=== PATIENT | female | born 1975 | race Caucasian/White ===

== ENCOUNTER 2017-06-03 10:59 | Emergency (ER) | payer BC ==
[2017-06-03 11:18] VITALS: BP 120/55; PULSE 62; RESP 20; TEMP 97.9; O2SAT 100
[2017-06-03] MEDS ORDERED: TETR250C PO (11:23)
--- NOTE | 2017-06-03 11:38 | PD ---
HPI Chief Complaint: Cardiac Complaint Time Seen by Provider: 11:12 Travel History International Travel<30 days: No Contact w/Intl Traveler<30days: No Traveled to known affect area: No History of Present Illness HPI Patient's a 42-year-old female presents the emergency department for evaluation of epigastric middle of the chest spasms. Patient states that it's coming and going quite frequently. States his been going on for the past few days. She went to an urgent care facility today and was referred here to "rule out ulcer. " Patient does run 3 miles a day at least 3 times a week but states that she's not been able to do this recently secondary to pain. When she has run in the past that is not increased her pain. She is nonsmoker no high blood pressure high cholesterol and a family history of early heart disease. Symptoms are moderate, spasmodic and waxing and waning, not exacerbated by exercise, not associated with any shortness of breath vomiting diarrhea constipation. PFSH Past Medical History ?: Not Past Surgical History Other Surgery: Yes (ROSACEA) Social History Alcohol Use: No Tobacco Use: No Substance Use: No Allergies-Medications (Allergen,Severity, Reaction): Coded Allergies: No Known Allergies (Verified Allergy, Unknown, 06/03/17) Reported Meds & Prescriptions Reported Meds & Active Scripts Active Bentyl (Dicyclomine HCl) 10 Mg Cap 10 Mg PO TID PRN Lidocaine Viscous Liq 2 % Liqd 5 Ml SWISH-SWAL QID PRN Reported Tetracycline (Tetracycline HCl) 250 Mg Cap Unknown Dose PO QID Review of Systems Except as stated in HPI: all other systems reviewed are Neg Physical Exam Narrative GENERAL: Well-developed well-nourished in no obvious distress, athletic build. SKIN: Focused skin assessment warm/dry. HEAD: Atraumatic. Normocephalic. EYES: Pupils equal and round. No scleral icterus. No injection or drainage. ENT: No nasal bleeding or discharge. Mucous membranes pink and moist. NECK: Trachea midline. No JVD. CARDIOVASCULAR: Regular rate and rhythm. No murmur appreciated. RESPIRATORY: No accessory muscle use. Clear to auscultation. Breath sounds equal bilaterally. GASTROINTESTINAL: Abdomen soft, non-tender, nondistended. Hepatic and splenic margins not palpable. MUSCULOSKELETAL: No obvious deformities. No clubbing. No cyanosis. No edema. NEUROLOGICAL: Awake and alert. No obvious cranial nerve deficits. Motor grossly within normal limits. Normal speech. PSYCHIATRIC: Appropriate mood and affect; insight and judgment normal. Data Data Last Documented VS Vital Signs Date Time Temp Pulse Resp B/P (MAP) Pulse Ox O2 Delivery O2 Flow Rate FiO2 06/03/17 13:33 06/03/17 13:11 59 20 96 06/03/17 11:18 97.9 Orders Orders Electrocardiogram (06/03/17 ) Ckmb (Isoenzyme) Profile (06/03/17 11:34) Complete Blood Count With Diff (06/03/17 11:34) Comprehensive Metabolic Panel (06/03/17 11:34) Magnesium (Mg) (06/03/17 11:34) Troponin I (06/03/17 11:34) Chest, Single Ap (06/03/17 11:34) Ecg Monitoring (06/03/17 11:34) Iv Access Insert/Monitor (06/03/17 11:34) Oximetry (06/03/17 11:34) Oxygen Administration (06/03/17 11:34) Sodium Chloride 0.9% Flush (Ns Flush) (06/03/17 11:45) Al-Mag Hy-Si 40-40-4 Mg/Ml Liq (Mag-Al P (06/03/17 11:45) Lidocaine 2% Viscous (Xylocaine 2% Visco (06/03/17 11:45) Labs Laboratory Tests Test 06/03/17 11:40 White Blood Count 5.1 TH/MM3 Red Blood Count 4.25 MIL/MM3 Hemoglobin 12.8 GM/DL Hematocrit 37.1 % Mean Corpuscular Volume 87.3 FL Mean Corpuscular Hemoglobin 30.1 PG Mean Corpuscular Hemoglobin Concent 34.5 % Red Cell Distribution Width 11.5 % Platelet Count 232 TH/MM3 Mean Platelet Volume 7.4 FL Neutrophils (%) (Auto) 57.2 % Lymphocytes (%) (Auto) 30.8 % Monocytes (%) (Auto) 8.9 % Eosinophils (%) (Auto) 2.1 % Basophils (%) (Auto) 1.0 % Neutrophils # (Auto) 2.8 TH/MM3 Lymphocytes # (Auto) 1.6 TH/MM3 Monocytes # (Auto) 0.5 TH/MM3 Eosinophils # (Auto) 0.1 TH/MM3 Basophils # (Auto) 0.1 TH/MM3 CBC Comment DIFF FINAL Differential Comment Blood Urea Nitrogen 21 MG/DL Creatinine 0.92 MG/DL Random Glucose 85 MG/DL Total Protein 7.2 GM/DL Albumin 4.1 GM/DL Calcium Level 8.5 MG/DL Magnesium Level 2.4 MG/DL Alkaline Phosphatase 44 U/L Aspartate Amino Transf (AST/SGOT) 16 U/L Alanine Aminotransferase (ALT/SGPT) 26 U/L Total Bilirubin 0.6 MG/DL Sodium Level 139 MEQ/L Potassium Level 3.9 MEQ/L Chloride Level 106 MEQ/L Carbon Dioxide Level 25.6 MEQ/L Anion Gap 7 MEQ/L Estimat Glomerular Filtration Rate 67 ML/MIN Total Creatine Kinase 76 U/L Troponin I LESS THAN 0.02 NG/ML MDM Medical Decision Making Medical Screen Exam Complete: Yes Emergency Medical Condition: Yes Differential Diagnosis esophageal spasm, hiatal hernia, peptic ulcer disease, ACS seems unlikely. Narrative Course patient 42-year-old female roomed in emergency department, she appears well and in no distress. She's been having symptoms today for the past several hours, troponin negative, EKG within normal limits. Chest x-ray is reassuring. Discussed with the patient that her symptoms are much more in line with the gastric causing given her exercise tolerance in the past don't think there is any reason for further workup at this time. Discussed that she needs to follow- up with a primary care physician and discussed return to ED criteria. Discussed of the pain worsens should consider to come back for further workup. Diagnosis Primary Impression: Epigastric pain Additional Impression: Esophageal spasm Referrals: Cynthia Escobar MD Scripts Dicyclomine (Bentyl) 10 Mg Cap 10 MG PO TID Y for Bowel Management, #30 CAP 0 Refills Prov: Hayden Abreu MD 06/03/17 Lidocaine Viscous Liq (Lidocaine Viscous Liq) 2 % Liqd 5 ML SWISH-SWAL QID Y for PAIN, #1 BOTTLE 0 Refills Prov: Hayden Abreu MD 06/03/17 Disposition: 01 DISCHARGE HOME Condition: Stable Hayden Abreu MD Jun 03, 2017 11:38
[2017-06-03] MEDS ORDERED: SODIUM CHLORIDE 0.9% FLUSH 10 ML FLUSH IVF PRN (11:45)
[2017-06-03] MEDS ORDERED: LIDOCAINE VISCOUS 2% SOLN 15 ML UDC PO ONE (11:45)
[2017-06-03] MEDS ORDERED: ALUMINUM/MAGNESIUM/SIMETH 30 ML CUP PO ONE (11:45)
[2017-06-03 11:49] VITALS: O2SAT 97
[2017-06-03 11:50] LABS: AUTOMATED NEUTROPHIL # 2.8 TH/MM3 (1.8-7.7); BASOPHIL # 0.1 TH/MM3 (0-0.2); EOSINOPHIL # 0.1 TH/MM3 (0-0.4); EOSINOPHIL % 2.1 % (0.0-4.0); HEMATOCRIT 37.1 % (35.0-46.0); HEMO FLAGS DIFF FINAL; LYMPH % 30.8 % (9.0-44.0); LYMPHOCYTE # 1.6 TH/MM3 (1.0-4.8); MEAN CELL VOLUME 87.3 FL (80.0-100.0); MEAN CORPUSCULAR HEMOGLOBIN 30.1 PG (27.0-34.0); MEAN CORPUSCULAR HGB CONC 34.5 % (32.0-36.0); MONO % 8.9 % (0.0-8.0); NEUT % 57.2 % (16.0-70.0); PLATELET COUNT 232 TH/MM3 (150-450); RED BLOOD COUNT 4.25 MIL/MM3 (4.00-5.30); RED CELL DISTRIBUTION WIDTH 11.5 % (11.6-17.2); WHITE BLOOD COUNT 5.1 TH/MM3 (4.0-11.0)
--- NOTE | 2017-06-03 11:58 | RADRPT ---
EXAM DATE/TIME: 06/03/2017 11:42 [facility] COMPARISON: No previous studies available for comparison. INDICATIONS : Chest Pressure centrally located MEDICAL HISTORY : None. SURGICAL HISTORY : None. ENCOUNTER: Initial ACUITY: 1 day PAIN SCORE: 3/10 LOCATION: Bilateral chest FINDINGS: A single view of the chest demonstrates the lungs to be symmetrically aerated without evidence of mas s, infiltrate or effusion. The cardiomediastinal contours are unremarkable. Osseous structures are intact. CONCLUSION: 1. No acute cardiopulmonary disease. Demarcus Riley MD on June 03, 2017 at 11:56 Board Certified Radiologist. This report was verified electronically.
[2017-06-03 11:59] LABS: CHLORIDE 106 MEQ/L (98-107); POTASSIUM 3.9 MEQ/L (3.5-5.1); SODIUM (NA) 139 MEQ/L (136-145)
[2017-06-03 12:03] LABS: ANION GAP 7 MEQ/L (5-15); BICARBONATE 25.6 MEQ/L (21.0-32.0); BLOOD UREA NITROGEN 21 MG/DL (7-18); MAGNESIUM 2.4 MG/DL (1.5-2.5)
[2017-06-03 12:06] LABS: ALT (GPT) 26 U/L (10-53); AST (GOT) 16 U/L (15-37); GLOMERULAR FILTRATION RATE 67 ML/MIN (>89)
[2017-06-03 12:07] LABS: TOTAL BILIRUBIN ADULT 0.6 MG/DL (0.2-1.0)
[2017-06-03 12:09] LABS: ALKALINE PHOSPHATASE 44 U/L (45-117)
[2017-06-03 12:14] VITALS: BP 96/66; PULSE 58; RESP 20; O2SAT 96
[2017-06-03 12:20] LABS: CREATINE KINASE 76 U/L (26-192)
[2017-06-03 13:11] VITALS: BP 101/66; PULSE 59; RESP 20; O2SAT 96
[2017-06-03] MEDS ORDERED: LIDO1SOL8 SWISH-SWAL (13:34)
[2017-06-03] MEDS ORDERED: DICY10 PO (13:34)
--- NOTE | 2017-06-03 15:55 | EKG ---
Date Performed: 06/03/2017 Time Performed: 11:25:25 PTAGE: 42 years EKG: SINUS BRADYCARDIA POSSIBLE RIGHT VENTRICULAR CONDUCTION DELAY BORDERLINE ECG NO PREVIOUS TRACING DOCTOR: Seth Atkins Interpretating Date/Time 06/03/2017 15:54:01
== END 2017-06-03 13:46 | disposition home or self-care (01) ==
LOC: PHED 10:59
DX: R10.13 Epigastric pain (principal); K22.4 Dyskinesia of esophagus
CPT/HCPCS: 71010; 80053; 82550; 83735; 84484; 85025; 93005